=== PATIENT | female | born 1970 | race Caucasian/White ===

== ENCOUNTER 2017-07-28 13:42 | Emergency (ER) | payer OTHER ==
[2017-07-28 14:16] VITALS: BP 126/80
[2017-07-29] MEDS ORDERED: DOXYCYCLINE HY100 M2 PO (00:23)
== END 2017-07-28 16:47 | disposition admitted as inpatient to this hospital (09) ==
LOC: ERH 13:42
DX: S70.361A Insect bite (nonvenomous), right thigh, initial encounter (principal); L03.115 Cellulitis of right lower limb; W57.XXXA Bitten or stung by nonvenomous insect and other nonvenomous arthropods, initial encounter